=== PATIENT | female | born 1955 | race Hispanic/Latino ===

== ENCOUNTER 2020-07-29 12:02 | Observation (INO) | payer MEDICARE ==
[2020-07-29 12:41] LABS: #Basophils 0.1 thou/uL (0.0-0.2); #Eosinphils 0.4 thou/uL (0.0-0.7); #Monocytes 0.4 thou/uL (0.11-0.59); #Neutrophils 4.8 thou/uL (1.40-6.50); %Eosinophils 4.7 % (0.0-10.0); %Lymphocytes 25.7 % (21.0-51.0); %Monocytes 5.3 % (0.0-10.0); %Neutrophils 63.3 % (42.0-75.0); Hemoglobin 14.1 g/dL (12.0-16.0); Mean Corpuscular HGB CONC 34.2 g/dL (32.0-36.0); Mean Corpuscular Hemoglobin 31.3 pg (27.0-31.0); Mean Corpuscular Volume 91.5 fL (78.0-98.0); Mean Platelet Volume 8.9 fL (7.4-10.4); Platelet Count 247 thou/uL (130-400); RBC Distribution Width 12.1 % (11.5-14.5); Red Blood Cell (RBC) Count 4.51 mill/uL (4.20-5.40); White Blood Cell (WBC) Count 7.6 thou/uL (4.8-10.8)
[2020-07-29 13:06] LABS: ALT (SGPT) 28 U/L (8-55); AST (SGOT) 22 U/L (5-34); Albumin 4.3 g/dL (3.4-4.8); Alkaline Phosphatase 60 U/L (40-110); Anion Gap 17 mmol/L (10-20); BUN (Urea Nitrogen) 23 mg/dL (9.8-20.1); Bilirubin, Total 0.6 mg/dL (0.2-1.2); Calc. Creatinine Clearance 0 mL/min (70-130); Calcium 9.2 mg/dL (7.8-10.44); Carbon Dioxide 20 mmol/L (23-31); Chloride 104 mmol/L (98-107); Estimated GFR-MDRD 72; Globulin 3.4 g/dL (2.4-3.5); Glucose 133 mg/dL (80-115); Potassium 4.1 mmol/L (3.5-5.1); Protein, Total 7.7 g/dL (6.0-8.3); Sodium 137 mmol/L (136-145)
[2020-07-29 14:10] LABS: Bilirubin Negative (Negative); Blood, Urine Negative (Negative); Clarity Clear (Clear); Glucose, Urine (Dipstick) Normal (Negative); Ketone, Urine Negative (Negative); Leukocyte Negative Leu/uL (Negative); Nitrite Negative (Negative); Protein, Urine (Dipstick) Negative (Neg-Trace); Urobilinogen Normal mg/dL (Less than 2)
--- NOTE | 2020-07-29 14:40 | RAD ---
PORTABLE CHEST ONE VIEW: 07/29/20 at 12:49 p.m. HISTORY: Hypotension, dizziness. FINDINGS: The heart size is normal. The lungs are expanded without lobar consolidation, pneumothoraces, or pleu ral effusions. IMPRESSION: No radiographic evidence of acute cardiopulmonary process. POS: AH
--- NOTE | 2020-07-29 15:00 | CT ---
CT BRAIN WITHOUT CONTRAST: 07/29/20 HISTORY: Dizziness. COMPARISON: None. FINDINGS: No evidence of acute infarct, hemorrhage, midline shift or abnormal extra-axial fluid collections are seen. The ventricular size is appropriate and the basilar cisterns patent. There is a tiny old lacun ar infarction in the right basal ganglia. The bony calvarium is intact. The visualized paranasal si nuses and mastoid air cells are well aerated. IMPRESSION: No CT evidence of acute intracranial process. POS: AH
--- NOTE | 2020-07-29 15:38 | PDOC.HHP ---
Hospitalist HPI - History of Present Illness Dizziness, low blood History of Present Illness: This is a 62-year-old female patient with a past medical history of diabetes mellitus type 2, hypothyroidism, hypertension, osteoporosis, who presents with dizziness and low blood pressure. Her last blood pressures at home was 99/58. Patient notes having had intermittent symptoms of dizziness for the past couple of weeks to a month. She states that sometimes after a long drive and getting out of the car she becomes dizzy with the environment becoming dark transiently. She has denied any syncope or presyncopal events. Today the symptoms became significantly worse while she was at her daughter's house and thus was brought here for further evaluation. She denies any focal weakness however has chronic left facial droop. She denies diplopia, slurred speech. At presentation her blood pressure was 125/63, pulse 63, respiratory 14, temperature 97.5 and saturation 93% on room air. Labs showed CBC quite unremarkable, BMP with glucose of 133 mild metabolic acidosis with bicarb at 20 otherwise everything else in normal limits. Chest x- ray showed no acute cardiopulmonary process, CT scan of the head without contrast was also negative. EKG showed heart rate of 60 with sinus arrhythmia and left axis deviation. No ST or Q-wave changes of concern. She was given 1 L normal saline. No focal deficits were noted at presentation Hospitalist team consulted for admission. Hospitalist ROS - Review of Systems Constitutional: denies: fever, chills, sweats, weakness Respiratory: denies: cough, shortness of breath, hemoptysis, SOB with excertion Cardiovascular: denies: chest pain, palpitations, orthopnea, paroxysmal noc. dyspnea Gastrointestinal: denies: nausea, vomiting, abdominal pain Genitourinary: denies: dysuria, frequency, incontinence, hematuria Musculoskeletal: denies: neck pain, shoulder pain, arm pain Hospitalist History - Past Medical History Other Medical History: History of hypertension, depression - Past Surgical History Other Surgical History: Right knee replacement - Family History Family History: reports: no pertinent history - Social History Smoking Status: Never smoker Alcohol: reports: None Activity level: independent ambulation - Exam General Appearance: awake alert General - other findings: No acute distress. ENT: normocephalic atraumatic, moist mucosa Heart: RRR, no murmur, no gallops, no rubs, normal peripheral pulses Respiratory: no wheezes, no rales, no ronchi, normal chest expansion Gastrointestinal: soft, non-tender, non-distended, normal bowel sounds Extremities: no cyanosis, no clubbing, no edema Neurological: cranial nerve grossly intact, normal sensation to touch, no weakness, no focal deficits Psychiatric: normal affect, A&O x 3 Hospitalist Results - Labs Result Diagrams: 07/29/20 12:25 07/29/20 12:25 Lab results: WBC 7.6 thou/uL (4.8-10.8) 07/29/20 12:25 Hgb 14.1 g/dL (12.0-16.0) 07/29/20 12:25 Hct 41.2 % (36.0-47.0) 07/29/20 12: MCV 91.5 fL (78.0-98.0) 07/29/20 12:25 Plt Count 247 thou/uL (130-400) 07/29/20 12:25 Neutrophils % 63.3 % (42.0-75.0) 07/29/20 12:25 Sodium 137 mmol/L (136-145) 07/29/20 12:25 Potassium 4.1 mmol/L (3.5-5.1) 07/29/20 12:25 Chloride 104 mmol/L (98-107) 07/29/20 12:25 Carbon Dioxide 20 mmol/L (23-31) L 07/29/20 12:25 BUN 23 mg/dL (9.8-20.1) H 07/29/20 12:25 Creatinine 0.80 mg/dL (0.6-1.1) 07/29/20 12:25 Glucose 133 mg/dL (80-115) H 07/29/20 12:25 Calcium 9.2 mg/dL (7.8-10.44) 07/29/20 12:25 Total Bilirubin 0.6 mg/dL (0.2-1.2) 07/29/20 12:25 AST 22 U/L (5-34) 07/29/20 12:25 ALT 28 U/L (8-55) 07/29/20 12:25 Alkaline Phosphatase 60 U/L (40-110) 07/29/20 12:25 Troponin I 0.016 ng/mL (< 0.028) 07/29/20 12:25 Serum Total Protein 7.7 g/dL (6.0-8.3) 07/29/20 12:25 Albumin 4.3 g/dL (3.4-4.8) 07/29/20 12:25 Urine Ketones Negative mg/dL (Negative) 07/29/20 13:40 Urine Blood Negative (Negative) 07/29/20 13:40 Urine Nitrite Negative (Negative) 07/29/20 13:40 Ur Leukocyte Esterase Negative Loraine/uL (Negative) 07/29/20 13:40 Hospitalist H&P A/P - Plan Plan: This is a 62-year-old female patient history of hypertension who presents with intermittent dizziness. Intermittent dizziness Etiology unclear however concerning for posterior stroke She has risk factors of diabetes mellitus and hypertension Initial CT was negative and currently no neuro deficits. As needed meclizine MRI in a.m. CTA if MRI turns out positive Orthostatic vital signs Start aspirin PT Fall precaution Neuro consult in a.m. Diabetes mellitus Check A1c Start correctional dosing insulin. Monitor glucose. Hypothyroidism Continue levothyroxine once dose verified. TSH in a.m. Hypertension Monitor blood pressure Resume home blood pressure medications VT prophylaxisLovenox CODE STATUS full code
--- NOTE | 2020-07-29 16:59 | RAD ---
Exam: Chest one view HISTORY:Palpitations. Comparison: 07/29/2020 at 12:18 PM FINDINGS: Cardiac silhouette: Normal Aorta: Unremarkable Pulmonary vessels: Normal Costophrenic angles: Clear LUNGS: No masses or consolidation. Pneumothorax: None Osseous abnormalities: None IMPRESSION: No acute cardiopulmonary process.
[2020-07-29] MEDS ORDERED: Aspirin 325 MG TAB PO SCH (18:00)
[2020-07-29] MEDS ORDERED: Acetaminophen 325 MG TAB PO PRN (18:30)
[2020-07-29] MEDS ORDERED: Sodium Chloride 0.9% 1,000 ML IV SCH (18:30)
[2020-07-29] MEDS ORDERED: Ondansetron ODT 4 MG TAB SL PRN (18:30)
[2020-07-29] MEDS ORDERED: Ondansetron PF 4 MG/2 ML Vial IVP PRN (18:30)
[2020-07-29 18:42] VITALS: BMI 31.6
[2020-07-29] MEDS ORDERED: Meclizine HCl 25 MG TAB PO PRN (20:59)
[2020-07-29] MEDS ORDERED: Dextrose 50% Abboject 50 ML SYRINGE SLOW IVP PRN (21:05)
[2020-07-29] MEDS ORDERED: HumaLOG 300 UNITS/3 ML VIAL SC PRN (21:05)
[2020-07-29] MEDS ORDERED: Dextrose 5% in Water 1,000 ML IV PRN (21:05)
[2020-07-30 06:13] LABS: Hemoglobin A1c 5.9 % (4.0-6.0)
[2020-07-30 06:26] LABS: Cardiac Risk 3.6 (Less than 4.5)
[2020-07-30] MEDS: Aspirin 325 MG TAB PO SCH (08:51)
[2020-07-30] MEDS ORDERED: Aspirin 325 MG TAB PO SCH (09:00)
[2020-07-30] MEDS ORDERED: Iopamidol-370 76% 500 ML 1 ML ONE (15:31)
--- NOTE | 2020-07-30 15:53 | PDOC.EEG ---
Neurology EEG Report - Report Report: EEG was performed using 24 channel Patient [employer] Mediate[employer] video digital EEG machine with 24 disc electrodes. This was an extended 2-hour 4 minutes of inpatient video EEG recording. Digital analysis of the EEG was done for Omari and seizure detection which revealed no abnormalities. Background: The posterior background rhythm is 10 to 12 Hz the background rhythm attenuates with eye opening and enhances with eye closure. Photic stimulation: Bioccipital symmetric driving response is observed. Hyperventilation: Not performed Sleep: None EEG diagnosis: Normal awake EEG.
--- NOTE | 2020-07-30 15:55 | PDOC.HOSPP ---
- Subjective Encounter Date: 07/30/20 Encounter Time: 15:53 Subjective: Ms. Miles is a 65-year-old female who is Norwegian-speaking was admitted to the hospital for 2-month onset of dizziness. She described "spinning sensation" whenever she gets up from a sitting position. This has been going on for the last 2 months but apparently got worse 2 days ago prompting this admission. She has been evaluated for a stroke. Initial CT of the head did not show any acute finding. MRI was negative for any acute ischemia but she does have small vessel disease. Neurology evaluation is pending. I will proceed with CT angio of the head and neck for further diagnostics. I reviewed echocardiogram which showed a normal ejection fraction with no significant valvular dysfunction. - Objective Vital Signs & Weight: Vital Signs (12 hours) Temp Pulse Pulse Pulse Resp BP BP 07/30/20 11:51 98.4 F 73 20 07/30/20 11:33 98.4 F 73 20 07/30/20 11:31 07/30/20 10:08 67 70 138/72 146/78 H 07/30/20 07:11 97.9 F 63 17 07/30/20 06:54 66 07/30/20 04:26 98.2 F 65 12 BP BP BP Pulse Ox 07/30/20 11:51 150/82 H 94 L 07/30/20 11:33 150/82 H 94 L 07/30/20 11:31 120/75 133/20 L 157/84 H 07/30/20 10:08 07/30/20 07:11 114/67 96 07/30/20 06:54 133/78 07/30/20 04:26 86/52 L 96 Weight Weight 207 lb 14.4 oz I&O: 07/29/20 07/30/20 07/31/20 06:59 06:59 05:59 Intake Total 1222 Balance 1222 Result Diagrams: 07/29/20 12:25 07/29/20 12:25 Additional Labs: Accuchecks 07/30/20 07/30/20 07/29/20 10:37 05:49 20:42 POC Glucose 115 H 92 107 H Radiology Reviewed by me: Yes EKG Reviewed by me: Yes Hospitalist ROS - Review of Systems Eyes: reports: pain Respiratory: reports: cough Cardiovascular: reports: palpitations Neurological: reports: weakness - Medication Medications: Active Medications Generic Name Dose Route Start Last Admin Trade Name Noy PRN Reason Stop Dose Admin Aspirin 325 mg 07/30/20 09:00 07/30/20 08:51 Aspirin 325 Mg Tab PO 325 mg DAILY CARA Administration Sodium Chloride 10 ml 07/29/20 21:00 07/30/20 08:52 Flush - Normal Saline 10 Ml Syringe IVF 10 ml Q12HR CARA Administration - Exam General Appearance: awake alert Eye: PERRL ENT: normocephalic atraumatic, no oropharyngeal lesions Neck: supple, symmetric, no JVD, no thyromegaly, no lymphadenopathy Heart: RRR, no murmur, no gallops, no rubs Respiratory: CTAB, no wheezes, no rales, no ronchi, normal chest expansion Gastrointestinal: soft, non-tender, non-distended, normal bowel sounds, no guarding Musculoskeletal: normal tone Psychiatric: normal affect, normal behavior, A&O x 3, oriented to person, oriented to place, oriented to time Hosp A/P (1) Dizziness and giddiness Code(s): R42 - DIZZINESS AND GIDDINESS Status: Acute Plan: Concern for an acute stroke. Stroke evaluation is ongoing. I will await neurology evaluation. We will obtain CT angio of the head and neck. - Plan old records reviewed/req, PT/OT, speech therapy, DVT proph w/lovenox #1. Dizziness. Concern for acute stroke. Stroke evaluation is ongoing. Will await neurology evaluation and recommendations. I reviewed the MRI with radiology and she did not have any acute stroke. We will proceed with CTA of the head and neck.
--- NOTE | 2020-07-30 16:58 | MRI ---
BRAIN MRI WITHOUT CONTRAST: 07/30/20 COMPARISON: None. HISTORY: Generalized weakness, low blood pressure. TECHNIQUE: Multiplanar and multisequence MR imaging of the brain obtained without contrast. FINDINGS: The diffusion weighted imaging demonstrates no evidence for acute infarction. The axial gradient echo imaging demonstrates no evidence for intracranial hemorrhage. There are numerous foci of increased T2 and FLAIR signal within the white matter consistent with smal l vessel disease. Regional bone marrow signal intensity appears within normal limits. Arterial flow voids at the axial level of the skull base appear unremarkable on the T2 weighted imagi ng. Imaged paranasal sinuses and mastoid air cells demonstrate no acute findings. IMPRESSION: Evidence of small vessel disease. No evidence for intracranial hemorrhage or acute infarction. POS: MELISSA
[2020-07-30] MEDS ORDERED: Acetaminophen 325 MG TAB PO PRN (17:58)
--- NOTE | 2020-07-30 19:14 | CT ---
CTA OF THE HEAD WITH AND WITHOUT IV CONTRAST AND 3-D REFORMATTED IMAGING. CTA OF THE NECK WITH IV CONTRAST AND 3-D REFORMATTED IMAGING. INDICATION: 65-year-old female with generalized weakness, dizziness and hypertension with resolution of those symptoms; still concern for stroke. COMPARISON: Prior MR the brain dated July 30, 2020 10:[address] the brain dated July 29. FINDINGS: CTA OF THE HEAD WITH AND WITHOUT CONTRAST: NONCONTRAST CT OF BRAIN: Hemorrhage: None Ischemia/Infarction: None. Midline Shift: None. Hydrocephalus: None. Skull and Extracranial Soft tissues: There is a bony defect involving the left medial orbital wall l ikely related to remote trauma. CTA OF THE BRAIN: Right ICA: Patent. Right MCA: Patent. Right BRENDAN: Patent. ACOM: Patent. Left ICA: Patent. Left MCA: Patent. Left BRENDAN: Patent. PCOMs: Patent. Vertebral arteries: Right vertebral artery is nondominant. The vertebral arteries appear patent. Basilar Artery: Patent. trucking supervisor: Patent. Incidentals: None. CTA OF THE NECK WITH CONTRAST: Right CCA: Patent. Right ICA: Patent. Right Subclavian: Patent. Right Vertebral Artery: Diminutive Left CCA: Patent. Left ICA: Patent. Left Subclavian: Patent. Left Vertebral Artery: Patent. Aerodigestive tract: Clear. Parotids/Submandibular/Thyroid glands: Normal. Lymph nodes: No pathologically enlarged lymph nodes. Lung Apices: Clear. Bones: There is scattered degenerative and osteoarthritic change present. No acute fracture or sublu xation demonstrated. Incidentals: None. IMPRESSION: 1. No hemodynamically significant stenosis, occlusion or aneurysmal formation.
[2020-07-30] MEDS ORDERED: FLU VACC QS2020-21(65YR UP)/PF 240 MCG/0.7 ML SYRINGE IM ONE (21:00)
--- NOTE | 2020-07-31 06:33 | CON ---
NEUROLOGY CONSULTATION DATE OF CONSULTATION: 07/30/2020 REASON FOR CONSULTATION: Dizziness, rule out TIA. HISTORY OF PRESENT ILLNESS: Ms. Pam Miles is a 65-year-old female with medical history significant for hypertension, diabetes, hypothyroidism, and osteoporosis, presented with dizziness and hypertension. Per the patient, she was having episodes of intermittent dizziness for the last few weeks. Per the patient, sometimes after a long drive and getting out of the car, she feels extremely dizzy, and her vision becomes dark. The patient denies loss of consciousness, nausea, vomiting, headache, chest pain, abdominal weakness, focal numbness, focal paresthesias, blurred vision, double vision, or loss of consciousness associated with the episode. Yesterday, her symptoms became extremely worse when she was at her daughter's house. Thus, she decided to bring her to the hospital for further evaluation. In the emergency room, CT scan was done, which was negative for acute intracranial pathology. EKG showed sinus arrhythmias with left axis deviation. She was admitted to rule out posterior circulation TIA. REVIEW OF SYSTEMS: All systems were reviewed and were negative except the pertinent positives and negatives mentioned in the HPI. PAST MEDICAL HISTORY: Hypertension, hypothyroidism, osteoporosis, diabetes mellitus, and depression. PAST SURGICAL HISTORY: Right knee replacement. FAMILY HISTORY: No significant family history. SOCIAL HISTORY: The patient lives with family. Denies smoking, alcohol, or illegal drug use. Vital Signs & Weight: Vital Signs (12 hours) Temp Pulse Pulse Pulse Resp BP BP 07/30/20 11:51 98.4 F 73 20 07/30/20 11:33 98.4 F 73 20 07/30/20 11:31 07/30/20 10:08 67 70 138/72 146/78 H 07/30/20 07:11 97.9 F 63 17 07/30/20 06:54 66 07/30/20 04:26 98.2 F 65 12 BP BP BP Pulse Ox 07/30/20 11:51 150/82 H 94 L 07/30/20 11:33 150/82 H 94 L 07/30/20 11:31 120/75 133/20 L 157/84 H 07/30/20 10:08 07/30/20 07:11 114/67 96 07/30/20 06:54 133/78 07/30/20 04:26 86/52 L 96 Weight Weight 207 lb 14.4 oz I&O: 07/29/20 07/30/20 07/31/20 06:59 06:59 05:59 Intake Total 1222 Balance 1222 Additional Labs: Accuchecks 07/30/20 07/30/20 07/29/20 10:37 05:49 20:42 POC Glucose 115 H 92 107 H Active Medications Generic Name Dose Route Start Last Admin Trade Name Freq PRN Reason Stop Dose Admin Aspirin 325 mg 07/30/20 09:00 07/30/20 08:51 Aspirin 325 Mg Tab PO 325 mg DAILY CARA Administration Sodium Chloride 10 ml 07/29/20 21:00 07/30/20 08:52 Flush - Normal Saline 10 Ml Syringe IVF 10 ml Q12HR CARA Administration PHYSICAL EXAMINATION: General Appearance: awake alert General - other findings: No acute distress. ENT: normocephalic atraumatic, moist mucosa Heart: RRR, no murmur, no gallops, no rubs, normal peripheral pulses Respiratory: no wheezes, no rales, no ronchi, normal chest expansion Gastrointestinal: soft, non-tender, non-distended, normal bowel sounds Extremities: no cyanosis, no clubbing, no edema Neurological: Mental status, the patient is alert and oriented to person, place, and time. Recent and remote memory, intact. Speech is clear. Motor, muscle tone and bulk are normal. Strength 5/5 bilaterally. Sensory intact. Cerebellar, finger-nose testing intact. Gait deferred due to patient's safety reason. Cranial nerves 2 through 12 intact. DATA REVIEWED: I reviewed the labs which were significant for hyperglycemia, 133. CT scan of the brain was done in the emergency room, which was negative for acute intracranial pathology. WBC 7.6 thou/uL (4.8-10.8) 07/29/20 12:25 Hgb 14.1 g/dL (12.0-16.0) 07/29/20 12:25 Hct 41.2 % (36.0-47.0) 07/29/20 12:25 MCV 91.5 fL (78.0-98.0) 07/29/20 12:25 Plt Count 247 thou/uL (130-400) 07/29/20 12:25 Neutrophils % 63.3 % (42.0-75.0) 07/29/20 12:25 Sodium 137 mmol/L (136-145) 07/29/20 12:25 Potassium 4.1 mmol/L (3.5-5.1) 07/29/20 12:25 Chloride 104 mmol/L (98-107) 07/29/20 12:25 Carbon Dioxide 20 mmol/L (23-31) L 07/29/20 12:25 BUN 23 mg/dL (9.8-20.1) H 07/29/20 12:25 Creatinine 0.80 mg/dL (0.6-1.1) 07/29/20 12:25 Glucose 133 mg/dL (80-115) H 07/29/20 12:25 Calcium 9.2 mg/dL (7.8-10.44) 07/29/20 12:25 Total Bilirubin 0.6 mg/dL (0.2-1.2) 07/29/20 12:25 AST 22 U/L (5-34) 07/29/20 12:25 ALT 28 U/L (8-55) 07/29/20 12:25 Alkaline Phosphatase 60 U/L (40-110) 07/29/20 12:25 Troponin I 0.016 ng/mL (< 0.028) 07/29/20 12:25 Serum Total Protein 7.7 g/dL (6.0-8.3) 07/29/20 12:25 Albumin 4.3 g/dL (3.4-4.8) 07/29/20 12:25 Urine Ketones Negative mg/dL (Negative) 07/29/20 13:40 Urine Blood Negative (Negative) 07/29/20 13:40 Urine Nitrite Negative (Negative) 07/29/20 13:40 Ur Leukocyte Esterase Negative Loraine/uL (Negative) 07/29/20 13:40 ASSESSMENT AND PLAN: (1) Dizziness and giddiness Code(s): R42 - DIZZINESS AND GIDDINESS Status: Acute Ms. Miles is a 65-year-old female with history significant for hypertension and depression, presented with intermittent episodes of dizziness. There was a concern about posterior circulation transient ischemic attack versus posterior temporal lobe seizures. Consider MRI of the brain to rule out acute intracranial pathology. EEG to rule out underlying seizure activity . 2D echo to evaluate for left ventricular ejection fraction. Telemetry. Neuro checks every 4 hours. Continue home medications. Permissive control of blood pressure at this time. Strict control of blood glucose. Continue aspirin for secondary stroke prevention. Continue home medications. Continue medical management per Primary Team, PT/OT. We will continue to follow. Thank you for the consult. Job ID: [id number] LIBRADO
[2020-07-31 07:27] VITALS: BP 152/75; TEMP 98
[2020-07-31] MEDS: Aspirin 325 MG TAB PO SCH (08:26)
--- NOTE | 2020-07-31 08:58 | PDOC.DS.DS ---
Provider - Provider Date of Admission: 07/29/20 15:26 Date of Discharge: 07/31/20 Admitting Provider: Stewart Andre MD Consultations: Neurology Primary Care Physician: OUT OF TOWN Course - Hospital Course Hospital Course: Ms. Miles is a 65-year-old woman whose medical history includes essential hypertension, diabetes, hypothyroidism and depression who presented to the hospital with a 2-month onset of dizziness. She described feeling dizzy after standing up from a sitting position. This got worse in the last 48 hours prior to this admission prompting her to come into the hospital for an evaluation. She had CT of the head done without contrast that was normal. Subsequently she had angiogram of her head and neck that also did not show any acute findings. An MRI of the brain was also obtained and an EEG was done. These were all negative. Since her admission she had done very well. She was seen by neurology briefly during this visit and there were no further recommendations. She has done very well and is discharged home today in stable condition. We discussed outpatient follow-up with her food services coordinator to consider an event monitor. She states having a food services coordinator in [facility] that she will see when she gets back home. We encouraged her to follow-up as soon as she is able to. She is discharged today in stable condition. I recommended she get meclizine [id number] to take as needed for dizzy spells. - Labs Lab Results: 07/29/20 12:25 07/29/20 12:25 Abnormal Lab Results - Last 48 hrs 07/29/20 12:25: Carbon Dioxide 20 L, BUN 23 H 07/29/20 12:25: MCH 31.3 H - Physical Exam Vitals: Vital Signs (12 hours) Temp Pulse Resp BP BP Pulse Ox 07/31/20 07:24 98 F 74 16 152/75 H 94 L 07/31/20 03:16 97.9 F 61 16 126/71 94 L 07/30/20 23:08 98.1 F 66 20 117/82 94 L Weight Weight 207 lb 14.4 oz Physical Exam: The patient was seen and examined on the day of discharge. Problem - Problem (1) Dizziness and giddiness Code(s): R42 - DIZZINESS AND GIDDINESS Status: Acute Plan - Discharge Medications Home Medications: Medication Instructions Recorded Confirmed Type Carvedilol 6.25 mg PO BID 10/30/20 10/30/20 History FLUoxetine HCl 10 mg PO DAILY 07/29/20 07/29/20 History Gabapentin 300 mg PO BID 07/29/20 07/29/20 History Ibandronate Sodium 150 mg PO Q30D 07/29/20 07/29/20 History Ketorolac Tromethamine [Ketorolac 1 drop L EYE TID 07/29/20 07/29/20 History Tromethamine 0.5% Ophth Soln] Levothyroxine Sodium 75 mcg PO DAILY 07/29/20 07/29/20 History Moxifloxacin [Vigamox 0.5% Opth 1 drop L EYE TID 07/29/20 07/29/20 History Drop] Omeprazole 20 mg PO DAILY 07/29/20 07/29/20 History Prednisolone Acetate [Pred Forte 1 drop L EYE TID 07/29/20 07/29/20 History 1% Ophth Soln] Allergies: No Known Allergies Allergy (Unverified 07/29/20 17:53) - Discharge Instructions Activity:: Activity as Tolerated Nourishment:: Heart Healthy Diet Therapies:: Not Applicable Equipment/Supplies:: Not Applicable IV Therapy:: Not Applicable - Follow up Plan Referrals: [facility] PHYSICIAN,OUT OF [Primary Care Provider] - Disposition: HOME Quality - Care Measures CORE MEASURES:: N/A
[2020-08-01 00:12] LABS: SARS-CoV-2 MS2 Positive; SARS-CoV-2 N Gene Negative; SARS-CoV-2 S Gene Negative; SARS-CoV-2 by NAA Not Detected (Not Detected); SARS-CoV-2 orf1ab Negative
--- NOTE | 2020-08-01 16:09 | CT ---
CTA OF THE HEAD WITH AND WITHOUT IV CONTRAST AND 3-D REFORMATTED IMAGING. CTA OF THE NECK WITH IV CONTRAST AND 3-D REFORMATTED IMAGING. INDICATION: 65-year-old female with generalized weakness, dizziness and hypertension with resolution of those symptoms; still concern for stroke. COMPARISON: Prior MR the brain dated July 30, 2020 10:[address] the brain dated July 29. FINDINGS: CTA OF THE HEAD WITH AND WITHOUT CONTRAST: NONCONTRAST CT OF BRAIN: Hemorrhage: None Ischemia/Infarction: None. Midline Shift: None. Hydrocephalus: None. Skull and Extracranial Soft tissues: There is a bony defect involving the left medial orbital wall l ikely related to remote trauma. CTA OF THE BRAIN: Right ICA: Patent. Right MCA: Patent. Right BRENDAN: Patent. ACOM: Patent. Left ICA: Patent. Left MCA: Patent. Left BRENDAN: Patent. PCOMs: Patent. Vertebral arteries: Right vertebral artery is nondominant. The vertebral arteries appear patent. Basilar Artery: Patent. exhibition designer: Patent. Incidentals: None. CTA OF THE NECK WITH CONTRAST: Right CCA: Patent. Right ICA: Patent. Right Subclavian: Patent. Right Vertebral Artery: Diminutive Left CCA: Patent. Left ICA: Patent. Left Subclavian: Patent. Left Vertebral Artery: Patent. Aerodigestive tract: Clear. Parotids/Submandibular/Thyroid glands: Normal. Lymph nodes: No pathologically enlarged lymph nodes. Lung Apices: Clear. Bones: There is scattered degenerative and osteoarthritic change present. No acute fracture or sublu xation demonstrated. Incidentals: None. IMPRESSION: 1. No hemodynamically significant stenosis, occlusion or aneurysmal formation. Transcribed Date/Time: 08/01/2020 4:08 PM
== END 2020-07-31 10:37 | disposition home or self-care (01) ==
LOC: ERS 12:02 → 2SE 15:26
PROVIDERS: ADMIT Student in an Organized Health Care Education/Training Program; ATTEND Hospitalist
DX: R42 Dizziness and giddiness (principal); I10 Essential (primary) hypertension; E11.9 Type 2 diabetes mellitus without complications; E03.9 Hypothyroidism, unspecified; F32.9 Major depressive disorder, single episode, unspecified; M81.0 Age-related osteoporosis without current pathological fracture; Z79.83 Long term (current) use of bisphosphonates; Z79.899 Other long term (current) drug therapy; Z23 Encounter for immunization; Z20.828 Contact with and (suspected) exposure to other viral communicable diseases
CPT/HCPCS: 70450; 70496; 70498; 70551; 71045; 80053; 80061; 81003; 82962 ×3; 83036; 84443; 84484; 85025; 90662; 90732; 93005; 93306; 95712; 95816; 95819; 95957; 97139 ×2; 99285; G0008; G0009; G0378 ×4; U0003; 36415; 36416; 87635; 90471; Q9967